=== PATIENT | female | born 1945 | race Caucasian/White ===

== ENCOUNTER → 2016-12-16 | Outpatient (CLI) | payer OTHER ==
[~2016-12-16] MED LIST: ACETAMINOPHEN PO; AMOXICILLIN PO; ASPIRIN PO; COLACE PO; LIPITOR PO; LISINOPRIL PO; LOPRESSOR PO; LORAZEPAM1 MG PO; LORTAB 7.5-5001 TAB PO; METFORMIN PO; PHENERGAN PO; VICODIN 5/500 T1 TAB PO; ZESTORETIC 20/11 TAB PO; [UNRECOGNIZED DRUG - REMARK]
--- NOTE | ~2016-12-16 | MY11 ---
[facility] A Service [facility] RADIOLOGY TEXT RESULTS PATIENT: TANISHA MCBRIDE [id number] : [facility] UNIT #: [id number] AGE: [address]: Abiodun Vazquez MD SEX: F ORDER DR: [id number] [facility] [address]. [place], [place] [address] [id number] O MR#: [id number] Acc #: [id number] NAME: TANISHA MCBRIDE. : 1945 SEX: F STUDY DATE/TIME: 12/16/2016 14:29 UNIT: [facility] ROOM: STUDY DESCRIPTION: MY Mammogram Screening Dig Félix Attending Physician: Abiodun Vazquez M.D. Ordering Physician: Abiodun Vazquez M.D. Primary Care Physician: Kenan Nolen M.D. MEDICAL IMAGING REPORT This report is preliminary unless electronic signature is present EXAM Bilateral digital screening mammogram with CAD 12/16/2016 INDICATIONS 71-year-old female for routine screening. No reported problems. Personal history of breast cancer on the left, status post radiation therapy. No family history of breast cancer. No current problems. TECHNIQUE CC, MLO true lateral and exaggerated CC lateral views of the left breast were performed. Standard screening views were obtained on the right. Images were obtained and reviewed with a FDA-approved CAD device. COMPARISON STUDIES 12/15/2015, 12/12/2014, 11/27/2013, 11/20/2012. FINDINGS Postop changes of some architectural distortion in the left breast. Breast parenchyma is composed of scattered fibroglandular densities and unchanged. There is no new dominant nodule or mass in either breast. No new suspicious clustered microcalcifications. Benign calcification present. IMPRESSION 1. Benign screening mammogram, 1 year followup recommended. BIRADS: 2 Benign Finding. Patients over the age of 40 are entered into a reminder system with target due date for the next mammogram. A result letter will also be sent to the patient. [facility] A [facility] RADIOLOGY TEXT RESULTS PATIENT: TANISHA MCBRIDE [id number] : [birth year] UNIT #: [id number] AGE: [address]: Abiodun Vazquez MD SEX: F ORDER DR: Dictated by... Good Stephenson M.D. THIS IS AN ELECTRONICALLY VERIFIED REPORT Good Stephenson M.D. at 12/17/2016 11:19 AM JUAN PABLO/no TD: 12/16/2016 21:58 JOB #: [id number] CC: Abiodun Mo M.D. MEDICAL IMAGING REPORT COPY
== END | disposition home or self-care (01) ==
LOC: CWCC 14:12
DX: Z12.31 Encounter for screening mammogram for malignant neoplasm of breast (principal); Z85.3 Personal history of malignant neoplasm of breast
CPT/HCPCS: G0202